=== PATIENT | male | born 1950 | race Two or more races ===

== ENCOUNTER 2016-07-18 18:47 | Observation (INO) | payer OTHER ==
[~2016-07-18] VITALS: Ht 180.3 cm; Wt 84.0 kg
[~2016-07-18 18:47] MED LIST: CRESTOR20 MG PO; NORVASC5 MG PO; PLAVIX75 MG PO; VITAMIN D35000 UNIT PO; ZEBETA5 MG PO; [UNRECOGNIZED DRUG - OTHER] PO; [UNRECOGNIZED DRUG - OTHER] PO
[2016-07-18 20:34] LABS: EOSINOPHIL (%) 0.1 % (0-5); HEMATOCRIT 40.9 % (38.0-50.0); IMMATURE GRANULOCYTE (%) 0.4 % (0.0-0.7); INSTRUMENT ABS NEUTROPHIL CT 7.3 K/uL; LYMPHOCYTE COUNT 0.4 K/uL (1.0-2.8); MCH 26.8 PG (29.0-34.0); MCHC 32.5 G/DL (30.0-36.0); MCV 82.5 FL (86-99); MEAN PLAT.VOLUME 9.5 uM^3 (9.0-12.4); MONOCYTE (%) 5.3 % (3-12); MONOCYTE COUNT 0.4 K/uL (0-0.8); NEUTROPHIL (%) 89.2 % (45-76); NEUTROPHIL COUNT 7.3 K/uL (1.8-6.4); PLATELET COUNT 218 K/uL (156-360); RBC DIS.WIDTH-CV 13.7 % (11.8-14.6); RED BLOOD COUNT 4.96 M/uL (4.00-5.50); WHITE BLOOD COUNT 8.2 K/uL (4.1-10.2)
[2016-07-18 20:49] LABS: CHLORIDE 103 mEq/L (99-109); POTASSIUM 4.4 mEq/L (3.7-5.4); SODIUM 135 mEq/L (136-147)
[2016-07-18 20:51] LABS: GLUCOSE 107 mg/dL (70-99)
[2016-07-18 20:52] LABS: ANION GAP 9 MEQ/L (2-14)
[2016-07-18 20:53] LABS: TOTAL BILIRUBIN 0.4 mg/dL (0.0-1.0)
[2016-07-18 20:54] LABS: ALKALINE PHOSPHATASE 50 IU/L (3-129)
[2016-07-18 20:55] LABS: GFR ESTIMATE (CALCULATED) > 59 mL/min/
[2016-07-18 20:56] LABS: UREA NITROGEN (BUN) 17 mg/dL (9-23)
[2016-07-18 20:57] LABS: TROP-I INTERPRETATION NEGATIVE; TROPONIN-I < 0.01 ng/mL (0.0-0.30)
[2016-07-18 20:58] LABS: CREATINE KINASE 91 IU/L (1-294); LIPASE 25 U/L (1.0-51.0)
[2016-07-18 21:17] LABS: INFLUENZA A VIRAL ANTIGEN NEGATIVE; INFLUENZA B VIRAL ANTIGEN NEGATIVE
[2016-07-18] MEDS ORDERED: NITROSTAT0.4 MG SL (22:39)
[2016-07-18] MEDS ORDERED: NITROGLYCERIN SL (22:40)
[2016-07-18] MEDS ORDERED: FORMULA TP (22:41)
[2016-07-18] MEDS ORDERED: LO-DOSE ASPIRIN81 M2 PO (22:41)
[2016-07-18] MEDS ORDERED: ISOSORBIDE MONO20 MG PO (22:42)
[2016-07-19 00:37] VITALS: BP 103/63
[2016-07-19 03:23] LABS: TROP-I INTERPRETATION NEGATIVE; TROPONIN-I 0.01 ng/mL (0.0-0.30)
[2016-07-19 03:39] LABS: HDL CHOLESTEROL 34 MG/DL (Desirable>=40); LDL CHOLESTEROL 102 mg/dL (Desirable<100); NON-HDL CHOLESTEROL 123 mg/dL (Desirable<160); TOTAL CHOLESTEROL 157 mg/dL (Desirable<200); TRIGLYCERIDES 104 MG/DL (Normal: <150)
[2016-07-19 04:00] VITALS: BP 104/69
[2016-07-19 08:05] VITALS: BP 111/64
[2016-07-19 09:56] LABS: TROP-I INTERPRETATION NEGATIVE; TROPONIN-I < 0.01 ng/mL (0.0-0.30)
[2016-07-19 12:12] VITALS: BP 88/52
== END 2016-07-19 14:41 | disposition home or self-care (01) ==
LOC: EME → EDBD 18:47 → EDOF 22:45 → 5WEST 07-19 00:13
PROVIDERS: Emergency Medicine; Physician Assistant Medical
DX: R07.89 Other chest pain (principal); R55 Syncope and collapse; T46.3X5A Adverse effect of coronary vasodilators, initial encounter; I25.10 Atherosclerotic heart disease of native coronary artery without angina pectoris; Z95.5 Presence of coronary angioplasty implant and graft; I10 Essential (primary) hypertension; E78.5 Hyperlipidemia, unspecified; D64.9 Anemia, unspecified
CPT/HCPCS: 70450; 71010; 71275; 80053; 80061; 82550 91; 83690; 84484; 85025; 87502; 93005; 99281; 99285; G0378; J2405; J3010; J7030

== ENCOUNTER 2016-08-11 04:37 | Observation (INO) | payer OTHER ==
[~2016-08-11] VITALS: Ht 180.3 cm; Wt 81.3 kg
[~2016-08-11 04:37] MED LIST changes: +FORMULA TP; +ISOSORBIDE MONO20 MG PO; +LO-DOSE ASPIRIN81 M2 PO; +NITROGLYCERIN SL; +NITROSTAT0.4 MG SL
[2016-08-11 05:27] LABS: HEMATOCRIT 33.9 % (38.0-50.0); MCH 26.7 PG (29.0-34.0); MCHC 32.4 G/DL (30.0-36.0); MCV 82.3 FL (86-99); MEAN PLAT.VOLUME 9.6 uM^3 (9.0-12.4); PLATELET COUNT 248 K/uL (156-360); RBC DIS.WIDTH-CV 13.4 % (11.8-14.6); RBC DIS.WIDTH-SD 40.1 % (39-53); RED BLOOD COUNT 4.12 M/uL (4.00-5.50); WHITE BLOOD COUNT 5.4 K/uL (4.1-10.2)
[2016-08-11 05:28] LABS: CHLORIDE 103 mEq/L (99-109); POTASSIUM 4.3 mEq/L (3.7-5.4); SODIUM 138 mEq/L (136-147)
[2016-08-11 05:29] LABS: GLUCOSE 96 mg/dL (70-99)
[2016-08-11 05:31] LABS: ANION GAP 10 MEQ/L (2-14)
[2016-08-11 05:33] LABS: GFR ESTIMATE (CALCULATED) > 59 mL/min/
[2016-08-11 05:34] LABS: UREA NITROGEN (BUN) 17 mg/dL (9-23)
[2016-08-11 05:38] LABS: INTER. NORMALIZED RATIO 1.1; PROTHROMBIN TIME 11.2 (9.2-11.2); PTT 31.3 (25-32)
[2016-08-11 05:39] LABS: TROP-I INTERPRETATION NEGATIVE; TROPONIN-I < 0.01 ng/mL (0.0-0.30)
[2016-08-11] MEDS ORDERED: ATORVASTATIN CA40 MG PO (07:56)
[2016-08-11] MEDS ORDERED: MIRALAX255 GM PO (07:58)
[2016-08-11] MEDS ORDERED: BACTROBAN OINTM22 GM TP (07:58)
[2016-08-11 11:30] VITALS: BP 103/66
[2016-08-11 12:12] LABS: TROP-I INTERPRETATION NEGATIVE; TROPONIN-I < 0.01 ng/mL (0.0-0.30)
[2016-08-11 15:25] LABS: D-DIMER ELISA 1.02 mg/L FEU (< 0.57)
[2016-08-11 15:34] VITALS: BP 112/71
[2016-08-11 15:35] VITALS: BP 92/59
[2016-08-11 15:37] VITALS: BP 98/62
[2016-08-11 18:25] LABS: TROP-I INTERPRETATION NEGATIVE; TROPONIN-I < 0.01 ng/mL (0.0-0.30)
[2016-08-12 00:43] VITALS: BP 113/63
[2016-08-12 03:48] VITALS: BP 106/56
[2016-08-12 07:35] VITALS: BP 122/73
[2016-08-12 07:38] VITALS: BP 118/69
[2016-08-12 12:22] VITALS: BP 112/64
== END 2016-08-12 16:18 | disposition home health service (06) ==
LOC: EME 04:37 → EDOF 07:06 → 5WEST 07:06 → EDOF 07:06 → 5WEST 11:23
PROVIDERS: Nurse Practitioner Adult Health
DX: R07.89 Other chest pain (principal); R55 Syncope and collapse; I10 Essential (primary) hypertension; E78.5 Hyperlipidemia, unspecified; I25.10 Atherosclerotic heart disease of native coronary artery without angina pectoris; Z95.5 Presence of coronary angioplasty implant and graft; D64.9 Anemia, unspecified; I25.2 Old myocardial infarction; I73.9 Peripheral vascular disease, unspecified
CPT/HCPCS: 71020; 71275; 80048; 84443; 84484; 85027; 85379; 85610; 85730; 93005; 99281; 99285; G0378; J2270

== ENCOUNTER 2017-01-15 00:05 | Emergency (ER) | payer OTHER ==
[~2017-01-15] VITALS: Ht 180.3 cm; Wt 84.6 kg
[~2017-01-15 00:05] MED LIST changes: +ATORVASTATIN CA40 MG PO; +BACTROBAN OINTM22 GM TP; +MIRALAX255 GM PO
[2017-01-15] MEDS ORDERED: TOBREX5 ML RIGHT EYE (01:16)
[2017-01-15 01:23] VITALS: BP 131/84
== END 2017-01-15 01:24 | disposition home or self-care (01) ==
LOC: EME 00:05 → EXP 00:05
DX: H10.9 Unspecified conjunctivitis (principal); E78.00 Pure hypercholesterolemia, unspecified; Z95.5 Presence of coronary angioplasty implant and graft; Z79.02 Long term (current) use of antithrombotics/antiplatelets; Z79.82 Long term (current) use of aspirin
CPT/HCPCS: 99281; 99283